=== PATIENT | female | born 1965 | race Caucasian/White ===

== ENCOUNTER 2017-05-21 15:23 | Emergency (ER) | payer OTHER ==
[~2017-05-21] VITALS: Ht 157.5 cm; Wt 53.3 kg
[~2017-05-21 15:23] MED LIST: ADDERALL XR 3030 MG PO; ADDERALL XR30 MG PO; ATORVASTATIN CA10 MG PO; BUSPAR10 MG PO; CIPRO500 MG PO; CIPROFLOXACIN H10 ML LEFT EYE; COZAAR25 MG PO; CYMBALTA30 MG PO; DEBROX15 ML BOTH EARS; EFFEXOR XR150 MG PO; LEVAQUIN500 MG PO; PEN-VEE K,VEET500 MG PO; PERCOCET 10/1 TABLET PO; PERCOCET 5/31 TABLET PO; SYNTHROID25 MCG PO; TRAMADOL HCL50 MG PO; TYLENOL WITH C1 EACH PO
[2017-05-21 15:35] VITALS: BP 143/82
[2017-05-21] MEDS ORDERED: NAPROSYN500 MG PO (16:52)
== END 2017-05-21 18:13 | disposition left against medical advice (07) ==
LOC: EME 15:23
DX: M79.602 Pain in left arm (principal); Z53.21 Procedure and treatment not carried out due to patient leaving prior to being seen by health care provider
CPT/HCPCS: 73110; 99281; 99283